=== PATIENT | female | born 1950 | race Caucasian/White ===

== ENCOUNTER 2017-05-20 06:14 | Day surgery (SDC) | payer MEDICARE ==
[2017-05-20] VITALS (8 sets, daily range): BP systolic 116–133; BP diastolic 66–73; PULSE 62–77; RESP 11–22; Ht 152.4 cm; Wt 91.0 kg
[~2017-05-20] VITALS: Ht 152.4 cm; Wt 91.0 kg
[2017-05-20] MEDS ORDERED: SITA1TAB5 PO (07:34)
[2017-05-20] MEDS ORDERED: VALS320T11 PO (07:35)
[2017-05-20] MEDS ORDERED: HYDR-3671 PO (07:36)
[2017-05-20] MEDS ORDERED: ROSU20TA PO (07:37)
[2017-05-20] MEDS ORDERED: METO100T13 PO (07:37)
[2017-05-20] MEDS ORDERED: OMEP20CA16 PO (07:37)
[2017-05-20] MEDS ORDERED: PIOG15TA4 PO (07:38)
[2017-05-20] MEDS ORDERED: NIFE30TA60 PO (07:38)
--- NOTE | 2017-05-20 07:50 | RADRPT ---
PROCEDURE: XR Chest 1 View. CLINICAL INDICATION: Abnormal breath sounds, preop. TECHNIQUE: AP view of the chest was obtained. COMPARISON: None. FINDINGS: The heart size is within normal limits. Calcified atherosclerosis is noted in the aorta. No consol idations are identified. No pneumothorax is seen. Osseous structures are intact. IMPRESSION: Calcified atherosclerosis in the aorta. Clear lungs. RPTAT: AA .Brendan Hill MD, MD Date Time Electronically viewed and signed by .Brendan Hill MD, MD on 05/20/2017 07:50 .P/
[2017-05-20 08:22] LABS: ADD SCAN DIFF NO
[2017-05-20 08:25] LABS: BASOPHILS % 0.7 % (0.0-2.0); EOSINOPHILS # 0.2 10^3/ul (0.0-0.5); EOSINOPHILS % 3.1 % (0.0-7.0); HEMATOCRIT 38.9 % (37.0-47.0); HEMOGLOBIN 12.9 g/dl (12.0-16.0); LYMPHOCYTES # 1.8 10^3/ul (0.8-2.9); LYMPHOCYTES % 31.9 % (15.0-51.0); MEAN CORPUSCULAR HEMOGLOBIN 28.4 pg (29.0-33.0); MEAN CORPUSCULAR HGB CONC 33.2 g/dl (32.0-37.0); MEAN CORPUSCULAR VOLUME 85.5 fl (82.0-101.0); MEAN PLATELET VOLUME 10.9 fl (7.4-10.4); MONOCYTE # 0.4 10^3/ul (0.3-0.9); MONOCYTES % 6.8 % (0.0-11.0); NEUTROPHIL # 3.3 10^3/ul (1.6-7.5); PLATELET COUNT 192 10^3/UL (140-415); RED BLOOD COUNT 4.55 10^6/ul (4.20-5.40); RED CELL DISTRIBUTION WIDTH 14.5 % (11.5-14.5); WHITE BLOOD COUNT 5.7 10^3/ul (4.8-10.8)
[2017-05-20] MEDS ORDERED: IODIXANOL LOCM 100 ML BTL ONE (08:29)
[2017-05-20] MEDS ORDERED: FENTAnyl 50 MCG/ML VIAL ONE (08:29)
[2017-05-20] MEDS ORDERED: VERAPAMIL 5 MG INJ ONE (08:29)
[2017-05-20] MEDS ORDERED: NITROGLYCERIN (IC) 100 MCG/ML INJ ONE (08:29)
[2017-05-20] MEDS ORDERED: LIDOCAINE 1% (MDV) 20 ML INJ ONE (08:29)
[2017-05-20] MEDS ORDERED: HEPARIN 1000 UNITS/ML 10 ML INJ ONE (08:29)
[2017-05-20] MEDS ORDERED: MIDAZOLAM 1 MG/ML 2 ML INJ ONE (08:29)
[2017-05-20] MEDS ORDERED: SOD CHLORIDE 0.9% 500 ML ONE (08:30)
[2017-05-20] MEDS ORDERED: DIAZEPAM 5 MG TAB PO SCH (08:33)
[2017-05-20] MEDS ORDERED: FAMOTIDINE 20 MG TAB PO SCH (08:33)
[2017-05-20] MEDS ORDERED: DIPHENHYDRAMINE 50 MG CAP PO SCH (08:34)
[2017-05-20] MEDS ORDERED: SOD CHLORIDE 0.45% 1,000 ML IV SCH (08:34)
[2017-05-20 08:43] LABS: INR 0.88; PROTIME 11.9 Sec (12.2-14.2); PT RATIO 0.9
[2017-05-20 08:45] LABS: CHOL/HDL RATIO 2.7 RATIO
[2017-05-20 08:47] LABS: CREATININE 0.62 mg/dl (0.44-1.00); POTASSIUM 4.3 mmol/L (3.5-5.1)
[2017-05-20 08:48] LABS: CALCIUM 9.7 mg/dl (8.4-10.2)
[2017-05-20 08:51] LABS: PARTIAL THROMBOPLASTIN TIME 22.3 Sec (25.0-35.0)
[2017-05-20] MEDS ORDERED: SOD CHLORIDE 0.9% 1,000 ML IV SCH (10:10)
[2017-05-20] MEDS ORDERED: morphine 2 MG INJ IV PRN (10:30)
[2017-05-20] MEDS ORDERED: ONDANSETRON 4 MG INJ IV PRN (10:30)
[2017-05-20] MEDS ORDERED: ACETAMINOPHEN 325 MG TAB PO PRN (10:30)
[2017-05-20] MEDS ORDERED: AL HYDROX/MG HYDROX/SIMETH 30 ML CUP PO PRN (10:30)
--- NOTE | 2017-05-21 16:32 | RADRPT ---
Vent Rate: 72 bpm RR Interval: 0 msec FL Interval: 152 msec QRS Duration: 94 msec QT Interval: 410 msec QTC Interval: 448 msec P-R-T [place]: 41 - 2 - 38 degrees Normal sinus rhythm Normal ECG Electronically Signed By: Eren Tolliver [id number]
--- NOTE | 2017-05-30 11:50 | CARRPT ---
DATE OF PROCEDURE: 05/20/2017 TYPE OF PROCEDURE: 1. Left heart craterization. 2. Coronary angiography. 3. Cineangiography. 4. Left ventriculogram. 5. 30 minutes of conscious sedation. ATTENDING PHYSICIAN: Dr. Carlos Esposito. REFERRING PHYSICIAN: Dr. Halima South. INDICATION: Chest pain refractory to medical therapy, positive stress test findings for inferior ischemia. ANESTHESIA: Conscious and local. BRIEF HISTORY: Ms. Camejo is a 66-year-old female with a history of hypertension, dyslipidemia and diabetes mellitus, who initially presented with complaints of substernal chest pain. Patient underwent a cardiac stress test revealing positive ischemia in inferior distribution. Given these findings, patient presents today to undergo left heart catheterization to assess the possibility of significant coronary artery disease, due to her symptoms of chest pain and positive stress test findings. PROCEDURE: After informed consent was obtained, patient was brought to the [facility] where her right radial artery and right femoral vein were prepped and draped in the usual sterile fashion. We initially attempted to gain access into the right femoral artery. This proved unsuccessful and the access was changed to the right femoral artery and subsequently using a modified Seldinger technique, a 6- [place]uran a 6-Honduran JL3.5 catheter was used to catheterization the left main coronary artery across . Multiple views of the left coronary artery system were obtained. JL3.5 wire and a JR4 were used to catheterize the right coronary artery to the ostium right coronary artery obtained. JL4 Guidewire and a 6-Honduran pigtail were passed the aorta down to the ascending aorta and across the aortic valve. LV: Left ventricular end-diastolic pressure was measured and the pigtail catheter was then pulled across the aortic valve to assess for significant gradient, which there was none, removed. Subsequently at this time, patient had the sheath removed. Manual pressure held. . This completed the procedure. There were no known complications. FINDINGS: 1. Coronary angiography: Right coronary artery proximally is a 30 mm vessel and its proximal portion has approximately 30 percent stenosis. The main at the right coronary artery is free of significant focal stenoses. Gives off a 2 mm PDA and 2 mm posteriorly branch, each with no significant focal stenoses. The left main proximally is a 4 mm vessel and has distal 20 percent stenosis. The circumflex proximally is a 30 mm vessel and has 20 percent stenosis just at the takeoff of the circumflex and AV groove. The circumflex then splits into 2 obtuse marginals, each 2 mm vessels with no significant focal stenoses. Circumflex in the AV groove is a 1.5 mm vessel. The LAD proximally is a 3 mm vessel and has a 20 percent to 30 percent stenosis at its proximal portion. The remainder of the LAD is free of significant focal stenosis. It gives off a mid branch diagonal subcentimeter vessel with no significant focal stenoses. Additionally, there exists a ramus branch 2 mm with no significant focal stenoses. 2. The left ventriculogram revealed a preserved left ventricular ejection fraction of 55 percent to 60 percent. Left ventricular end-diastolic pressure of 19 pre LV-gram, 21 post LV- gram. No significant stenosis by gradient. 1+ mitral regurgitation. TOTAL PHOTON: 2.7 minutes. TOTAL CONTRAST: 80 cc. IMPRESSION: 1. Very mild nonobstructive coronary artery disease. 2. Preserved left ventricular systolic function. 3. Mildly elevated left heart filling pressure. 4. No significant aortic stenosis by gradient. 5. 1+ mitral regurgitation. RECOMMENDATIONS: 1. In light of procedure findings at this time, would maximize medical management. 2. Aggressive risk factor . 3. Patient may be admitted to the same day surgery center for post cath results . Probable discharge later this afternoon. Dictated By: Kailey Nicole /lauren/aries /Document#: [id number] CC: Halima South M.D.;*[facility]*
== END 2017-05-20 17:00 | disposition home or self-care (01) ==
LOC: SDS 06:14
PROVIDERS: ATTEND Internal Medicine
DX: I25.10 Atherosclerotic heart disease of native coronary artery without angina pectoris (principal); I34.0 Nonrheumatic mitral (valve) insufficiency; I10 Essential (primary) hypertension; E78.00 Pure hypercholesterolemia, unspecified; E11.9 Type 2 diabetes mellitus without complications
CPT/HCPCS: 71010; 80048; 80061; 82962; 85025; 85610; 85730; 93005; 93458; C1769; C1887; J1644; J2250; J3010; J7040; Q9967